=== PATIENT | female | born 1965 | race African-American/Black ===

== ENCOUNTER 2016-09-12 17:44 | Emergency (ER) | payer OTHER, MEDICAID ==
--- NOTE | 2016-09-12 18:01 | DR.GENAD ---
HPI - Complaint/Symptoms Chief Complaint Doctors Comments: Patient was transferred from [place] to have closed fixiation (transverse,displaced dorsally angulated fracture of the left distal radius; wrist to be performed by Dr Everett. Patient fell today. She arrived via EMS in stable conditon with left forearm splinted. She is alert in no acute distress. ROS - Review of Systems Constitutional: No Symptoms Reported Eyes: No Symptoms Reported ENTM: No Symptoms Reported Respiratoy: No Symptoms Reported Cardiovascular: No Symptoms Reported Gastrointestinal/Abdominal: No Symptoms Reported Genitourinary: No Symptoms Reported Neurological: No Symptoms Reported Musculoskeletal: Left, Wrist Integumentary: No Symptoms Reported Hematologic/Lymphatic: No Symptoms Reported Endocrine: No Symptoms Reported Psychiatric: No Symptoms Reported All Other Systems: Reviewed and Negative PE - Vital Signs Vitals: Temperature 98.8 F Pulse Rate [Apical] 92 Pulse Rate 87 Respiratory Rate 16 Blood Pressure [Right Arm] 176/100 Blood Pressure 181/110 O2 Sat by Pulse Oximetry 97 - General Limitations: No Limitations General Appearance: Alert, In No Apparent Distress - Head Head Exam: Normal Inspection, Atraumatic - Eyes Eye exam: Normal Appearance, PERRL, EOMI - ENT ENT Exam: Normal Exam External Ear Exam: Normal External Inspection TM/Canal Exam: Bilateral Normal Nose Exam: Normal Nose Exam Mouth Exam: Normal Inspection, Drooling Throat Exam: Normal Inspection, Tonsillar Erythema - Neck Neck Exam: Normal Inspection, Full ROM - Chest Chest Inspection: Normal Inspection, Symmetric Chest Wall Rise - Respiratory Respiratory Exam: Normal Lung Sounds Bilat Respiratory Exam: Bilateral Clear to Auscultation - Cardiovascular Cardiovascular Exam: Regular Rate - Abdominal Exam Abdominal Exam: Normal Inspection Abdominal Tenderness: negative: RUQ, RLQ, LUQ, LLQ, Epigastrium, Suprapubic, Diffuse, Mild, Moderate, Severe, Other - Extremities Extremities Exam: Normal Inspection, Full ROM - Back Back Exam: Normal Inspection, Full ROM - Neurologic Neurological Exam: Alert, Oriented X3 - Skin Skin Exam: Warm, Dry, Intact Course - Treatment Treatment: Patient was evaluated by Dr Everett but no family member present to sign consent for reductin.. He advised patient to come to his office on 09/18/16 for evaluation and treatment with quardian who can sign and or give authorization for reduction procedure. - Reevaluation 1st: Unchanged ROR - Labs Reviewed Result Diagrams: 09/12/16 18:15 05/27/17 18:15 Laboratory: WBC 8.9 X10^3/uL (3.6-10.0) 09/12/16 18:15 RBC 5.13 X10^6/uL (3.5-5.4) 09/12/16 18:15 Hgb 15.7 g/dL (12.0-16.0) 09/12/16 18:15 Hct 46.0 % (36.0-47.0) 09/12/16 18:15 MCV 89.6 fL (80.0-100.0) 09/12/16 18:15 MCH 30.5 pg (27.0-34.0) 09/12/16 18:15 MCHC 34.1 g/dL (33.0-35.0) 09/12/16 18:15 RDW 13.4 % (11.6-16.5) 09/12/16 18:15 Plt Count 267 X10^3/uL (150.0-450.0) 09/12/16 18:15 MPV 8.1 fL (7.4-11.0) 09/12/16 18:15 Neut % 63.0 % (42.0-75.0) 09/12/16 18:15 Lymph % 28.6 % (21.0-51.0) 09/12/16 18:15 Glynn % 6.9 % (0.0-13.0) 09/12/16 18:15 Eos % 0.4 % (0.9-2.9) L 09/12/16 18:15 Baso % 1.1 % (0.2-1.0) H 09/12/16 18:15 Neut # 5.6 x10^3/uL (2.2-4.8) H 09/12/16 18:15 Lymph # 2.6 X10^3/uL (1.3-2.9) 09/12/16 18:15 Glynn # 0.6 x10^3/uL (0.3-0.8) 09/12/16 18:15 Eos # 0.0 x10^3/uL (0.0-0.2) 09/12/16 18:15 Baso # 0.1 X10^3/uL (0.0-0.1) 09/12/16 18:15 Absolute Nucleated RBC 0.1 /100WBC 09/12/16 18:15 Sodium 138 mmol/L (136-145) 09/12/16 18:15 Corrected Sodium TNP 09/12/16 18:15 Potassium 4.0 mmol/L (3.5-5.1) 09/12/16 18:15 Chloride 101 mmol/L (98-107) 09/12/16 18:15 Carbon Dioxide 27.7 mmol/L (21-32) 09/12/16 18:15 BUN 5 mg/dL (7-18) L 09/12/16 18:15 Creatinine 0.83 mg/dL (0.55-1.02) 09/12/16 18:15 Est GFR (MDRD) Af Amer > 60 (>60) 09/12/16 18:15 Est GFR (MDRD) Non-Af > 60 (>60) 09/12/16 18:15 Glucose 95 mg/dL (65-99) 09/12/16 18:15 Calcium 9.7 mg/dL (8.5-10.1) 09/12/16 18:15 Corrected Calcium TNP 09/12/16 18:15 Total Bilirubin 0.50 mg/dL (0.2-1.0) 09/12/16 18:15 AST 21 Units/L (15-37) 09/12/16 18:15 ALT 21 Units/L (12-78) 09/12/16 18:15 Alkaline Phosphatase 94 Units/L (46-116) 09/12/16 18:15 Total Protein 9.4 g/dL (6.4-8.2) H 09/12/16 18:15 Albumin 4.3 g/dL (3.4-5.0) 09/12/16 18:15 Globulin 5.1 g/dL (2.5-4.5) H 09/12/16 18:15 Albumin/Globulin Ratio 0.8 Ratio (1.1-2.1) L 09/12/16 18:15 Ethyl Alcohol mg/dL < 3 mg/dL (0-19.9) 09/12/16 18:15 - Diagnosis Discharge Problem: Distal radius fracture, left Qualifiers: Encounter type: initial encounter Fracture type: closed Fracture morphology: unspecified fracture morphology Qualified Code(s): S52.502A - Unspecified fracture of the lower end of left radius, initial encounter for closed fracture - Discharge Plan Condition: Stable - Follow ups/Referrals Follow ups/Referrals: NFD,None [Primary Care Provider] - 3 days - Instructions
[2016-09-12 18:17] VITALS: BMI 17.2
[2016-09-12 18:23] LABS: BASOPHILS # (AUTO) 0.1 X10^3/uL (0.0-0.1); BASOPHILS % (AUTO) 1.1 % (0.2-1.0); EOSINOPHILS % (AUTO) 0.4 % (0.9-2.9); HEMOGLOBIN 15.7 g/dL (12.0-16.0); LYMPHOCYTES # (AUTO) 2.6 X10^3/uL (1.3-2.9); LYMPHOCYTES % (AUTO) 28.6 % (21.0-51.0); MEAN CORPUSCULAR HEMOGLOBIN 30.5 pg (27.0-34.0); MEAN CORPUSCULAR HGB CONC 34.1 g/dL (33.0-35.0); MEAN CORPUSCULAR VOLUME 89.6 fL (80.0-100.0); MEAN PLATELET VOLUME 8.1 fL (7.4-11.0); MONOCYTES # (AUTO) 0.6 x10^3/uL (0.3-0.8); MONOCYTES % (AUTO) 6.9 % (0.0-13.0); NEUTROPHILS # (AUTO) 5.6 x10^3/uL (2.2-4.8); PLATELET COUNT 267 X10^3/uL (150.0-450.0); RED BLOOD COUNT 5.13 X10^6/uL (3.5-5.4); RED CELL DISTRIBUTION WIDTH 13.4 % (11.6-16.5); WHITE BLOOD COUNT 8.9 X10^3/uL (3.6-10.0)
[2016-09-12] MEDS ORDERED: DIPRIVAN VIAL 20 ML ONE (18:26)
[2016-09-12] MEDS ORDERED: NS 1000 ML 1,000 ML ONE (18:26)
[2016-09-12 18:33] LABS: ALANINE AMINOTRANSFERASE 21 Units/L (12-78); ALBUMIN 4.3 g/dL (3.4-5.0); ALKALINE PHOSPHATASE 94 Units/L (46-116); ASPARTATE AMINO TRANSFERASE 21 Units/L (15-37); BLOOD ALCOHOL < 3 mg/dL (0-19.9); BLOOD UREA NITROGEN 5 mg/dL (7-18); CALCIUM 9.7 mg/dL (8.5-10.1); CARBON DIOXIDE 27.7 mmol/L (21-32); CHLORIDE 101 mmol/L (98-107); CREATININE 0.83 mg/dL (0.55-1.02); GLUCOSE 95 mg/dL (65-99); SODIUM 138 mmol/L (136-145); TOTAL PROTEIN 9.4 g/dL (6.4-8.2); eGFR BLACK RACES > 60 (>60); eGFR NON BLACK RACES > 60 (>60)
--- NOTE | 2016-09-12 19:49 | RAD ---
EXAM: Left wrist x-ray INDICATION: Postreduction view COMPARISION: No priors for comparison TECHNIQUE: Lateral only, single view FINDINGS: No prior films are available for comparison. There is evidence of a distal radius fracture which is only seen on the lateral view provided. The fracture lines are near-anatomic alignment. No dislocati on. IMPRESSION: Limited lateral only view obtained. There is near anatomic alignment of the distal radius fracture. Reported By:
[2016-09-12] MEDS ORDERED: CATAPRES TAB 0.1 MG PO ONE (20:00)
[2016-09-12] MEDS ORDERED: CATAPRES TAB 0.1 MG ONE (20:01)
[2016-09-12] MEDS ORDERED: CATAPRES TAB 0.2 MG PO ONE (20:36)
[2016-09-12] MEDS ORDERED: CATAPRES TAB 0.2 MG ONE (20:38)
[2016-09-12 21:17] VITALS: BP 143/89
== END 2016-09-12 21:18 | disposition home or self-care (01) ==
LOC: ER 18:01
PROC: 0PSJ34Z Reposition Left Radius with Internal Fixation Device, Percutaneous Approach (ICD-10-PCS; principal; 2016-09-12)
DX: S52.502A Unspecified fracture of the lower end of left radius, initial encounter for closed fracture (principal); W19.XXXA Unspecified fall, initial encounter; Y92.9 Unspecified place or not applicable
CPT/HCPCS: 25600; 36415; 73100; 80053; 80320; 85025; 93041; 96365; 99283; G6040; J3490

== ENCOUNTER → 2016-09-23 | Outpatient (CLI) | payer OTHER, MEDICAID ==
[2016-09-12 21:17] VITALS: BP 143/89
--- NOTE | 2016-09-23 14:31 | RAD ---
Examination: X-rays of the left wrist. Clinical history: Left wrist pain. Technique: Three views of the left wrist were obtained. Comparison: Single lateral view dated 09/12/2016. Findings: There is a mildly impacted, comminuted fracture of the distal radius, with mild lateral and dorsal d isplacement of the distal fragment and small bony fragments also seen displaced at the fracture site . No significant angulation of the fracture is noted. No appreciable callus formation or periosteal reaction is noted at the fracture site. A small 4 mm corticated ossific density is seen at the distal aspect of the ulnar styloid, likely re presenting a small accessory ossicle or old ununited ulnar styloid fracture. No soft tissue abnormality is noted. Impression: 1. Fracture of the distal radius, as described above. Reported By:
== END | disposition home or self-care (01) ==
LOC: RAD 13:41
PROVIDERS: ATTEND Orthopaedic Surgery
DX: M25.532 Pain in left wrist (principal); S52.592A Other fractures of lower end of left radius, initial encounter for closed fracture; X58.XXXA Exposure to other specified factors, initial encounter
CPT/HCPCS: 73100